=== PATIENT | male | born 1955 | race Caucasian/White ===

== ENCOUNTER 2024-04-20 08:41 | Outpatient (CLI) | payer MEDICARE, BC ==
[~2024-04-20] VITALS: Ht 172.7 cm; Wt 102.1 kg
[2024-04-20 09:12] LABS: TOTAL HEMOGLOBIN 15.3 G/dl (13.5-17.5)
[2024-04-20] MEDS: albuterol 2.5 MG/3 ML nebule NEB ONE (09:57)
[2024-04-20 10:01] VITALS: PULSE 66; RESP 16; O2SAT 94
[2024-04-20 10:13] VITALS: PULSE 70; RESP 16
== END 2024-04-20 23:59 | disposition home or self-care (01) ==
LOC: RT 08:41
PROVIDERS: ATTEND Internal Medicine Cardiovascular Disease
DX: J68.4 Chronic respiratory conditions due to chemicals, gases, fumes and vapors (principal); J98.4 Other disorders of lung; R06.02 Shortness of breath
CPT/HCPCS: 85018; 94060; 94727; 94729; 94760

== ENCOUNTER 2024-05-31 08:53 | Day surgery (SDC) | payer MEDICARE, BC ==
[~2024-05-31] VITALS: Ht 177.8 cm; Wt 101.5 kg
[2024-05-31] VITALS (14 sets, daily range): BP systolic 91–129; BP diastolic 57–81; PULSE 63–71; RESP 6–23; TEMP 98.3; O2SAT 92–97
[2024-05-31] MEDS ORDERED: nitroGLYCERIN 0.4mg SUBLingual tab SL PRN ×2 (09:45→12:40)
[2024-05-31 09:51] LABS: BASOPHILS # (AUTO) 0.1 X10'3 (0-0.2); EOSINOPHILS # (AUTO) 0.2 X10'3 (0-0.9); EOSINOPHILS % (AUTO) 2.7 % (0-6); HEMATOCRIT 52.9 % (42.0-52.0); HEMOGLOBIN 17.1 g/dl (14.0-17.9); LYMPHOCYTES # (AUTO) 1.2 X10'3 (1.1-4.8); LYMPHOCYTES % (AUTO) 15.1 % (21-51); MEAN CORPUSCULAR HEMOGLOBIN 30.4 PG (27.0-31.0); MEAN CORPUSCULAR HGB CONC 32.3 g/dL (33.0-36.5); MEAN CORPUSCULAR VOLUME 94.2 FL (78-98); MEAN PLATELET VOLUME 7.9 FL (7.4-10.4); MONOCYTES # (AUTO) 0.9 X10'3 (0-0.9); MONOCYTES % (AUTO) 11.1 % (2-12); NEUTROPHILS # (AUTO) 5.5 X10'3 (1.8-7.7); NEUTROPHILS % (AUTO) 70.1 % (42-75); PLATELET COUNT 302 X10'3 (140-440); RED BLOOD COUNT 5.62 X10'6 (4.70-6.10); RED CELL DISTRIBUTION WIDTH 13.7 % (11.5-14.5); WHITE BLOOD COUNT 7.8 X10'3 (4.5-11.0)
[2024-05-31 10:06] LABS: APTT 24 SECONDS (22-32); PROTHROMBIN TIME 10.2 SECONDS (9.0-12.0)
[2024-05-31 10:09] LABS: ALBUMIN 3.6 G/DL (3.4-5.0); ANION GAP 9 (8-16); BLOOD UREA NITROGEN 26 MG/DL (7-18); BUN/CREATININE RATIO 25.7 (10.0-20.0); CALCIUM 8.8 MG/DL (8.5-10.1); CHLORIDE 106 MMOL/L (99-107); CREATININE 1.01 MG/DL (0.60-1.10); GLUCOSE 112 MG/DL (70-104); POTASSIUM 3.6 MMOL/L (3.5-5.1); SODIUM 142 MMOL/L (135-145); TOTAL CARBON DIOXIDE 27.2 MMOL/L (24-32); eCRCL 72 ML/MIN; eGFR 73 ML/MIN
[2024-05-31] MEDS ORDERED: iohexol 350 MG/ML 50ML vial IV ONE (10:37)
[2024-05-31] MEDS ORDERED: midazolam 1 mg/ML 2ml injection ONE (10:37)
[2024-05-31] MEDS ORDERED: LIDOcaine 1% 30ml preserv. free vial ONE (10:37)
[2024-05-31] MEDS ORDERED: iohexol 350MG/ML 100ml bottle IV ONE (10:37)
[2024-05-31] MEDS ORDERED: fentaNYL/PF 50MCG/1 ML 2ML syringe ONE (10:37)
[2024-05-31] MEDS ORDERED: GLUC100017 PO (10:39)
[2024-05-31] MEDS ORDERED: POTA-206 PO (10:39)
[2024-05-31] MEDS ORDERED: TURM500C7 PO (10:39)
[2024-05-31] MEDS ORDERED: MULT-1085 PO (10:39)
[2024-05-31] MEDS ORDERED: SALM1CAP6 PO (10:39)
[2024-05-31] MEDS ORDERED: FLO0.4C PO (10:39)
[2024-05-31] MEDS ORDERED: BISO-2 PO (10:39)
[2024-05-31] MEDS ORDERED: CHON400C PO (10:39)
[2024-05-31] MEDS ORDERED: FURO40TA4 PO (10:39)
[2024-05-31] MEDS ORDERED: ASPI-611 PO (10:39)
[2024-05-31] MEDS: LORazepam 0.5 MG tablet PO PRN (10:44)
[2024-05-31] MEDS: normal saline 1,000 ML IV SCH (10:44)
[2024-05-31] MEDS: diphenhydrAMINE 25mg capsule PO PRN (10:45)
[2024-05-31 12:01] LABS: ISTAT Hct ART 44 %PCV (42-52); ISTAT O2 SATURATION ARTERIAL 92 % (95-98); ISTAT SOURCE ART
[2024-05-31 12:30] LABS: ISTAT Hct MIX 44 %PCV (42-52); ISTAT O2 SATURATION MIX VENOUS 59 % (60-80); ISTAT SOURCE VEN
[2024-05-31] MEDS ORDERED: ondansetron/PF 4mg/2ml inj IV PRN (12:40)
[2024-05-31] MEDS ORDERED: normal saline 1000ml 1,000 ML IV SCH (12:40)
[2024-05-31] MEDS ORDERED: HYDROcodone/acetaminophen 5mg/325mg tablet PO PRN (12:40)
[2024-05-31] MEDS ORDERED: HYDROcodone/acetaminophen 10/325mg tab PO PRN (12:40)
[2024-05-31] MEDS ORDERED: proCHLORperazine 10 MG/2 ml inj IV PRN (12:40)
== END 2024-05-31 17:55 | disposition home or self-care (01) ==
LOC: SSTAY O 08:53
PROVIDERS: ATTEND Internal Medicine Cardiovascular Disease
DX: I27.20 Pulmonary hypertension, unspecified (principal); E87.79 Other fluid overload; I51.7 Cardiomegaly; I25.2 Old myocardial infarction; Z79.899 Other long term (current) drug therapy
CPT/HCPCS: 36415; 71046; 80048; 82803; 85014; 85025; 85610; 85730; 93005; 93460; 99152; 99153; A6258; C1751; C1760; C1769; J1644; J2003; J2250; J3010; J7030; Q0163; Q9967; Z7610